=== PATIENT | female | born 1970 | race Caucasian/White ===

== ENCOUNTER → 2022-03-29 10:29 | Outpatient (CLI) | payer OTHER, SELFPAY ==
--- NOTE | ~2022-03-29 | MM_ITS ---
EXAMINATION: MM screening rabia BI w alma HISTORY: Screening TECHNIQUE: Craniocaudal and mediolateral oblique 3-D tomosynthesis images were obtained and synthetic 2-D images were generated. CAD analysis was submitted and interpreted. COMPARISON: Comparison to multiple prior studies sequentially, with oldest reviewed study dated 02/2013. BREAST PARENCHYMAL COMPOSITION: The breasts are almost entirely fatty. FINDINGS: There is no evidence of suspicious mass, calcification, or architectural distortion to sugg est malignancy in either breast. There has been no suspicious interval change. IMPRESSION: 1. No mammographic evidence of malignancy. 2. Recommend routine screening mammography in one year. BI-RADS Category 1: Negative Reviewed, dictated and finalized at location A.
== END ==
PROVIDERS: PCP Internal Medicine; Visit Provider Nurse Practitioner
DX: Z12.31 Encounter for screening mammogram for malignant neoplasm of breast (principal)
CPT/HCPCS: 77063; 77067

== ENCOUNTER 2025-04-18 08:44 | Emergency (ER) | payer OTHER, SELFPAY ==
--- NOTE | ~2025-04-18 | XR_ITS ---
EXAMINATION: XR chest 2V 04/18/2025 09:21 INDICATION: Chest pain TECHNIQUE:Frontal and lateral images of the chest were obtained. COMPARISON: None FINDINGS: The lungs are clear. The cardiomediastinal silhouette is within normal limits. There are no pleural effusions. There is no pneumothorax suspected. IMPRESSION: 1: NO ACUTE CARDIOPULMONARY DISEASE. Reviewed, dictated and finalized at location Q.
[2025-04-18 08:46] VITALS: BP 138/91; PULSE 66; RESP 20; TEMP 36.8; O2SAT 98
[2025-04-18 08:52] VITALS: O2SAT 95
--- NOTE | 2025-04-18 08:52 | ECG_ITS ---
Test Date: 2025-04-18 08:53:45 Measurements Intervals [place] Rate: 64 P: 22 [place]: 145 QRS: 0 QRSD: 90 T: 12 QT: 375 QTc: 389 Interpretive Statements SINUS RHYTHM VOLTAGE CRITERIA FOR LVH BASELINE ARTIFACT- I, II, III, AVR, AVL, AVF BORDERLINE ECG No previous ECG available for comparison Electronically Signed On 04-18-2025 09:05:41 CDT by Solomon Slaughter D.O.
--- NOTE | 2025-04-18 09:05 | ED.CHESTPAIN ---
HPI - Chest Pain General Chief Complaint: Chest Pain Stated Complaint: CP Time Seen by Provider: 04/18/25 08:51 History of Present Illness HPI narrative: 54-year-old female history of hypertension presents to ER complaining of substernal chest pain that radiated through back and into her left arm. Endorse diaphoresis. States symptoms present for approximately 20 minutes and occurred during rest. Patient described the pain as a crushing sensation. Denies alleviating or aggravating factors. States the chest pain caused her shortness of for denies syncopal episodes. Related Data Allergies Allergy/AdvReac Type Severity Reaction Status Date / Time No Known Allergies Allergy Verified 04/18/25 09:30 Review of Systems Review of Systems: All systems reviewed & are unremarkable except as noted in HPI and below Exam Const: General: healthy appearing, no acute distress and alert Nutritional Appearance: obese Orientation/consciousness: patient oriented x3 Limitations: no limitations Chest: Chest palpation & inspection: normal inspection of the chest Resp: Effort & Inspection: normal respiratory effort Cardio: Rate: regular rate Rhythm: regular rhythm Skin: General skin exam: normal color Neuro: General: patient oriented x3, moves all extremities and CN's II-XI intact bilaterally Extrem: General: normal to inspection, no clubbing, cyanosis or edema and no pedal edema Psych: Mental Status: mental status grossly normal Affect: normal affect Attitude: cooperative Course Vital Signs Vital signs: Vital Signs Temperature 36.8 C 04/18/25 08:46 Pulse Rate 66 04/18/25 08:46 Respiratory Rate 20 04/18/25 08:46 Blood Pressure 138/91 H 04/18/25 08:46 Pulse Oximetry 98 04/18/25 08:46 Oxygen Delivery Room Air 04/18/25 08:46 Temperature 36.8 C 04/18/25 08:46 Pulse Rate 66 04/18/25 08:46 Respiratory Rate 20 04/18/25 08:46 Blood Pressure 138/91 H 04/18/25 08:46 Pulse Oximetry 95 04/18/25 08:52 Oxygen Delivery Room Air 04/18/25 08:52 MDM - Chest Pain MDM Narrative Medical decision making narrative: 54-year-old female history of hypertension presented to the ER complaining of substernal chest pain radiated to her left arm and mid back. States the symptoms were present for approximately 40 minutes prior to arrival. EKG shows signs of acute ischemia. Troponin delta troponin both negative. Heart score 2. Chest x-ray shows no acute cardiopulmonary disease. D-dimer is negative. Differential diagnosis includes angina, acute coronary syndrome, PE, pneumonia, costochondritis, pleurisy. Unknown exact cause is the cause chest pain. Consulted with Cardiology, they recommend outpatient follow-up. Will plan discharge patient in stable condition with return ER precautions given. Lab Data 04/18/25 09:48 04/18/25 09:48 Labs: Lab Results 04/18/25 04/18/25 Range/Units 09:48 12:03 WBC 12.8 H (4.5-10.0) K/mm3 RBC 4.61 (4.2-5.4) M/mm3 Hgb 13.6 (12.0-15.0) g/dL Hct 41.2 (37.0-47.0) % MCV 89.4 (80-100) fl MCH 29.5 (26-34) pg MCHC 33.0 (32-36) g/dl RDW 13.1 (11.5-14.5) % Plt Count 352 (150-375) k/mm3 MPV 9.0 (7.4-10.4) fl Immature Gran % (Auto) 0.5 (0-0.5) % Neut % (Auto) 73.5 H (45.5-73.1) % Lymph % (Auto) 18.3 (18.3-44.2) % [place] % (Auto) 5.5 (2.6-8.5) % Eos % (Auto) 1.4 (0-4.4) % Baso % (Auto) 0.8 (0.2-1.2) % Lymph # (Auto) 2.34 (0.9-3.2) K/mm3 [place] # (Auto) 0.7 H (0.1-0.6) K/mm3 Eos # (Auto) 0.2 (0-0.3) K/mm3 Baso # (Auto) 0.1 (0.0-0.1) K/mm3 Abs Immat Gran (auto) 0.06 H (0.00-0.031) K/mm3 Absolute Neuts (auto) 9.4 H (1.3-6.7) K/mm3 Absolute Nucleated RBC 0.000 (0.0-0.012) K/mm3 Nucleated RBC % 0.0 (0.0-0.2) % PT 12.8 (11.1-14.7) Seconds INR 0.9 APTT 24.8 (22.3-36.8) Seconds Sodium 137 (137-145) mmol/L Potassium 4.2 (3.4-5.0) mmol/L Chloride 103 (98-107) mmol/L Carbon Dioxide 27 (22-30) mmol/L Anion Gap 7 (4-12) mmol/L BUN 15 (7-17) mg/dL Creatinine 0.84 (0.7-1.0) mg/dL Estim Creat Clear Calc 81 ml/min Estimated GFR > 60 (59 - ) Glucose 99 (65-110) mg/dL Calcium 9.7 (8.4-10.2) mg/dL Total Bilirubin 0.4 (0.2-1.3) mg/dL AST 69 H (14-36) U/L ALT 39 H (6-35) U/L Alkaline Phosphatase 83 (38-126) U/L Troponin I < 0.012 < 0.012 (0.000-0.034) ng/mL Total Protein 7.3 (6.3-8.2) g/dL Albumin 4.1 (3.5-5.1) g/dL Lipase 243 (23-300) U/L Discharge Plan Discharge Clinical Impression: Chest pain Patient Disposition: Home Condition: Stable Instructions: Antibiotic Form, Chest Pain (ED) Patient Language: Bahamian Follow-up/Referrals: Solomon Slaughter DO [Physician, Cardiology] Flash,Spenser Mendez MD [Primary Care Provider] Time of Disposition: 12:45
[2025-04-18] MEDS: ASPIRIN 81 MG CHEWABLE TABLET 324 MG PO (09:39)
[2025-04-18 09:52] LABS: Hematocrit 41.2 % (37.0-47.0); Hemoglobin 13.6 g/dL (12.0-15.0); Immature Granulocyte Percent A 0.5 % (0-0.5); Lymphocytes Absolute Auto 2.34 K/mm3 (0.9-3.2); Mean Corpuscular HGB Conc 33.0 g/dl (32-36); Mean Corpuscular Hemoglobin 29.5 pg (26-34); Mean Corpuscular Volume 89.4 fl (80-100); Nucleated Red Blood Cells Absolute Auto 0.000 K/mm3 (0.0-0.012); Nucleated Red Blood Cells Perc 0.0 % (0.0-0.2); Platelet Count Result 352 k/mm3 (150-375); Red Blood Count 4.61 M/mm3 (4.2-5.4); White Blood Count 12.8 K/mm3 (4.5-10.0)
--- OUTSIDE RECORDS SUMMARY | 2025-04-18 09:59 | XMS_ITS | Clinical Summary ---
Author Organization [facility] Medical Office Building A Address [address] [place] [address] Care Team Providers Care Aircraft Electrical Systems Specialist Name Role Phone Bebeto Rosenberg MD Primary Care Provider Allergies No known active allergies Medications LORazepam (ATIVAN) 0.5 mg tablet Take 1 tablet (0.5 mg total) by mouth every 8 (eight) hours as needed for anxiety 30 tablet 1 04/24/2023 Active ergocalciferol (VITAMIN D) 50,000 unit capsule TAKE 1 CAPSULE BY MOUTH ONE TIME PER WEEK 12 capsule 3 03/01/2024 Active lisinopril-hydr oCHLOROthiazide (ZESTORETIC) 20-12.5 mg per tablet TAKE 1 TABLET BY MOUTH EVERY DAY 90 tablet 3 04/12/2024 Active semaglutide (Wegovy) 1 mg/0.5 mL auto-injector Inject 0.5 mL (1 mg total) under the skin every 7 days 2 mL 11 08/09/2024 Active Active Problems Problem Noted Date Diagnosed Date Severe obesity 08/09/2024 Annual physical exam 05/23/2017 Visit for screening mammogram 05/23/2017 Atopic rhinitis 01/08/2014 Overview (11/27/2016): ALLERGIC RHINITIS NOS Multiple-type hyperlipidemia 01/08/2014 Overview (11/28/2016): MIXED HYPERLIPIDEMIA Morbid obesity 01/08/2014 Overview (11/28/2016): MORBID OBESITY Adiposity 07/26/2010 Overview (11/28/2016): Obesity Benign hypertension 11/10/2009 Overview (11/28/2016): Benign Hypertension Resolved Problems Problem Noted Date Diagnosed Date Resolved Date Acute streptococcal pharyngitis 01/18/2017 09/02/2019 Overview (01/24/2017): Strep throat Acute maxillary sinusitis 04/24/2016 Overview (11/30/2016): Acute maxillary sinusitis, recurrence not specified Migraine 07/28/2012 05/23/2017 Overview (11/28/2016): Migraine Encounters Date Type Department Care Team Description 03/14/2025 Telephone [facility] Primary Care at [address] [place] [address] Bebeto Rosenberg MD Prior Auth (Wegovy 1 mg) from Last 3 Months Immunizations Immunization Administration Dates Next Due Heplisav-b (Hepatitis B) 05/17/2024,04/17/2024 Influenza, Quadrivalent, Spl it, Preservative Free, Intradermal 06/10/2015 Influenza, Quadrivalent, Spl it, Preservative Free, Intramuscular 06/09/2015 Influenza, Split 07/26/2010 Influenza, Trivalent, Cell Culture-based MDCK, Preservative Free, Antibiotic Free, Intramuscular 04/17/2024 Influenza, Unspecified 04/22/2022(Deferr ed: Patient Refused),10/23/2021(Deferred: Patient Refused),11/17/2020(Deferred: Patient Refused),05/25/2020(Deferred: Patient Refused),09/02/2019(Deferred: Patient Refused),09/01/2018(Deferred: Patient Refused) Moderna SARS-CoV-2 Monovalen t Vaccination (12+ YRS) 11/24/2021,10/27/2021 Medical History Medical History Date Comments 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 Hx Other Medical Headache, migra ine Mixed hyperlipidemia Benign hypertension Family History Medical History Relation Name Comments Diabetes Father Diabetes mellit us; Breast cancer Father's Sister Heart failure Maternal Grandmother Conges tive heart failure; Skin cancer Maternal Grandmother Cancer -skin; Hypertension Mother Hypertension; Breast cancer Paternal Grandmother Diabetes Sister Diabetes mellit us; Relation Name Status Comments Father Father's Sister Maternal Grandmother Mother Paternal Grandmother Sister Social History Tobacco Use Types Packs/Day Years Used Date Smoking Tobacco: Never Smokeless Tobacco: Never Tobacco Cessation:Counseling Given: Yes Alcohol Use Standard Drinks/Week Comments No 0 (1 standard drink = 0.6 oz pur e alcohol) PHQ-2 Answer Date Recorded PHQ-2 Total Score (If total score is 3 or more points, staff should administer the PHQ-9) 0 08/09/2024 Comments No Sex and Gender Information Value Date Recorded Sex Assigned at Not on file Legal Sex Female 5:37 PM CONVENTION PLANNER Gender Identity Female 01/19/2021 11:03 AM CDT Sexual Orientation Not on file Obstetrics History Para Term AB IAB SAB Ectopic Multiple Livin g Live Births 4 3 3 Date Outcome GA Total Labor Labor/2nd/3rd Weight Sex Type Anes PTL Tess A1 A5 Name Clin Term Term Term Last Filed Vital Signs Vital Sign Reading Time Taken Comments Blood Pressure 118/78 08/09/2024 3:33 PM CONVENTION PLANNER Pulse 76 08/09/2024 3:33 PM CONVENTION PLANNER Temperature 36.6 C (97.8 F) 08/09/2024 3:33 PM CONVENTION PLANNER Respiratory Rate 16 08/09/2024 3:33 PM CONVENTION PLANNER Oxygen Saturation 97% 08/09/2024 3:33 PM CONVENTION PLANNER Inhaled Oxygen Concentration - - Weight 102.5 kg (226 lb) 08/09/2024 3:33 PM CONVENTION PLANNER Height 167.6 cm (5' 6) 08/09/2024 3:33 PM CONVENTION PLANNER Body Mass Index 36.48 08/09/2024 3:33 PM CONVENTION PLANNER Plan of Treatment Health Maintenance Due Date Last Done Comments Hepatitis C Screening 1970 Osteoporosis Screening-Bone Density Scan 1970 DTaP/Tdap/Td Vaccine (1 - Tdap) 1981 Zoster Vaccine (1 of 2) 2020 Cervical Cancer Screening 01/30/20232021, 01/30/2022, 12/13/2020, Additional history exists Colon Cancer Screening-DNA Stool 03/24/2024 03/24/2021 Covid-19 Vaccine ( season) 2024 11/24/2021, 10/27/2021 Breast Cancer Screening-Mammogram 09/26/2024 09/26/2023, 03/29/2022, 12/25/2018, Additional history exists Influenza Vaccine (#1) 2025 , 06/10/2015, 06/09/2015, Additional history exists Depression Screening 08/09/2025 08/09/2024, 04/24/2023, 04/22/2022, Additional history exists Regular Well Visit/Exam 18-64 08/09/2025 08/09/2024, 04/24/2023, 04/22/2022, Additional history exists Hepatitis B Screening Completed 05/17/2024, 024 Pneumococcal vaccine <65 Aged Out No longer eligible based on patient's age to complete this topic Procedures Procedure Name Priority Date/Time Associated Diagnosis Comments SCREENING MAMMOGRAM BILATERAL W KANU Schedule Routine, Read Routine (OP Routine) 09/26/2023 3:15 PM CONVENTION PLANNER Visit for screening mammogram HM PAP SMEAR Routine 01/30/2022 STOOL DNA COLOGUARD Routine 03/24/2021 11:01 AM CDT Screening for colorectal cancer from Last 3 Months or Most Recently Relevant to Health Maintenance Results * Screening Mammogram Bilateral W Kanu (09/26/2023 3:15 PM CONVENTION PLANNER) Anatomical Region Laterality Modality Breast Bilateral Mammography 10/13/2023 8:08 AM CONVENTION PLANNER Addenda Addendum by Dany Negrete MD on 10/16/2023 11:23 AM CONVENTION PLANNER Prior mammograms from [facility] ([place], [place]) dictated 03/29/2022 and 12/25/2018 are now available for comparison. The 5 mm mass of concern in the upper inner left breast has not suspiciously changed since December 2018, evidence of a benign etiology based on documented stability of at least 2 years. There is no suspicious finding in either breast on mammogram. Screening mammogram in one year is recommended. The patient will be contacted regarding this addendum. BI-RADS: 2 - Benign. Electronically signed by: Dany Negrete M.D. Impressions 10/13/2023 8:08 AM CONVENTION PLANNER 1. Left breast 5 mm indeterminate mass at approximately the 10 o'clock position, 7-8 cm from the nipple. Left breast diagnostic ultrasound is recommended for further evaluation. The patient will be contacted. 2. No mammographic evidence of malignancy in the right breast. Recommend screening mammography of the right breast in one year. BI-RADS: 0 - Additional imaging evaluation is necessary. Electronically signed by: Dany Negrete M.D. Narrative 10/13/2023 8:08 AM CONVENTION PLANNER EXAMINATION: SCREENING MAMMOGRAM BILATERAL W KANU ORDERING HEALTHCARE PROVIDER: BEBETO ROSENBERG HISTORY: Routine screening mammography. COMPARISON: New baseline mammogram. No prior imaging available for comparison. TECHNIQUE: CC and MLO views of the bilateral breasts were obtained with digital technique using breast tomosynthesis with C view. Computer aided detection was utilized. FINDINGS: DENSITY: There are scattered fibroglandular elements in the bilateral breasts. BREASTS: There is a 5 mm oval circumscribed mass in the upper inner left breast, middle depth. There are no associated suspicious microcalcifications or architectural distortion. There is no other suspicious findings in either breast on mammogram. Bebeto Rosenberg MD IMG MAMMO PROCEDURES Ed ited Result - Final * HM PAP SMEAR (01/30/2022) us Generic External Data Provider HEALTH MAINTENANC E Final Result * Stool DNA - Cologuard (03/24/2021 11:01 AM CDT) Stool DNA - Cologuard Negative Negative [employer] (CLIA #:[id number]) Comment: NEGATIVE TEST RESULT. A negative Cologuard result indicates a low likelihood that a colorectal cancer (CRC) or advanced adenoma (adenomatous polyps with more advanced pre-malignant features) is present. The chance that a person with a negative Cologuard test has a colorectal cancer is less than 1 in 1500 (negative predictive value >99.9%) or has an advanced adenoma is less than 5.3% (negative predictive value 94.7%). These data are based on a prospective cross-sectional study of 10,000 individuals at average risk for colorectal cancer who were screened with both Cologuard and colonoscopy. (Kathy Campbell et al, N Engl J Med 2014;370(14):3568-6166) The normal value (reference range) for this assay is negative. COLOGUARD RE-SCREENING RECOMMENDATION: Periodic colorectal cancer screening is an important part of preventive healthcare for asymptomatic individuals at average risk for colorectal cancer. Following a negative Cologuard result, the [employer] Society and U.S. Multi-Society Task Force screening guidelines recommend a Cologuard re-screening interval of 3 years. References: [employer] Society Guideline for Colorectal Cancer Screening: https://www.cancer.org/cancer/vrcxv-azzmpw-valwbz/wpqcpxunm-simzxrhwj-hqgybgh/ac s-rec ommendations.html.; Gen DK, Akanksha CORTES, Abelardo AgueroK, Colorectal Cancer Screening: Recommendations for Physicians and Patients from the U.S. Multi-Society Task Force on Colorectal Cancer Screening , Am J Gastroenterology 2017; 112:6826-3350. TEST DESCRIPTION: Composite algorithmic analysis of stool DNA-biomarkers with hemoglobin immunoassay. Quantitative values of individual biomarkers are not reportable and are not associated with individual biomarker result reference ranges. Cologuard is intended for colorectal cancer screening of adults of either sex, 45 years or older, who are at average-risk for colorectal cancer (CRC). Cologuard has been approved for use by the U.S. FDA. The performance of Cologuard was established in a cross sectional study of average-risk adults aged 50-84. Cologuard performance in patients ages 45 to 49 years was estimated by sub-group analysis of near-age groups. Colonoscopies performed for a positive result may find as the most clinically significant lesion: colorectal cancer [4.0%], advanced adenoma (including sessile serrated polyps greater than or equal to 1cm diameter) [20%] or non- advanced adenoma [31%]; or no colorectal neoplasia [45%]. These estimates are derived from a prospective cross-sectional screening study of 10,000 individuals at average risk for colorectal cancer who were screened with both Cologuard and colonoscopy. (Kathy Campbell et al, N Engl J Med 2014;370(14):2561-0383.) Cologuard may produce a false negative or false positive result (no colorectal cancer or precancerous polyp present at colonoscopy follow up). A negative Cologuard test result does not guarantee the absence of CRC or advanced adenoma (pre-cancer). The current Cologuard screening interval is every 3 years. ([employer] Society and U.S. Multi-Society Task Force). Cologuard performance data in a 10,000 patient pivotal study using colonoscopy as the reference method can be accessed at the following location: www.[employer]/results. Additional description of the Cologuard test process, warnings and precautions can be found at www.cologuard.[employer]rippifi. Stool 03/24/2021 11:0 1 AM CDT 07/24/2021 1:02 PM CONVENTION PLANNER Bebeto Rosenberg MD LAB BODY FLUIDS AND STO OLS ORDERABLES Final Result [facility] (CLIA #:[id number]) [place] [address] [place] [address] from Last 3 Months or Most Recently Relevant to Health Maintenance Insurance [facility] [place] [facility] Care Teams Aircraft Electrical Systems Specialist Relationship Specialty Start Date End Date Bebeto Rosenberg MD PCP - General 12/08/14
[2025-04-18 10:03] LABS: INR 0.9; Prothrombin Time 12.8 Seconds (11.1-14.7)
[2025-04-18 10:04] LABS: Partial Thromboplastin Time 24.8 Seconds (22.3-36.8)
[2025-04-18 10:09] LABS: Alanine Aminotransferase 39 U/L (6-35); Albumin Level 4.1 g/dL (3.5-5.1); Alkaline Phosphatase 83 U/L (38-126); Anion Gap 7 mmol/L (4-12); Aspartate Amino Transferase 69 U/L (14-36); Bilirubin,Total 0.4 mg/dL (0.2-1.3); Blood Urea Nitrogen 15 mg/dL (7-17); Calcium 9.7 mg/dL (8.4-10.2); Carbon Dioxide 27 mmol/L (22-30); Chloride 103 mmol/L (98-107); Estimated CRCL calculation 81 ml/min; Estimated Glomerular Filt Rate > 60; Glucose 99 mg/dL (65-110); Lipase 243 U/L (23-300); Potassium 4.2 mmol/L (3.4-5.0); Sodium 137 mmol/L (137-145); Total Protein 7.3 g/dL (6.3-8.2)
[2025-04-18 10:15] LABS: Troponin I < 0.012 ng/mL (0.000-0.034)
--- NOTE | 2025-04-18 11:53 | ECG_ITS ---
Test Date: 2025-04-18 11:59:40 Measurements Intervals [place] Rate: 59 P: 20 [place]: 159 QRS: -4 QRSD: 94 T: 12 QT: 395 QTc: 393 Interpretive Statements SINUS BRADYCARDIA DELAYED PRECORDIAL R/S TRANSITION VOLTAGE CRITERIA FOR LVH BASELINE ARTIFACT- I, III, AVR, AVL ,AVF BORDERLINE ECG Compared to ECG 04/18/2025 08:53:45 NO SIGNIFICANT CHANGE Electronically Signed On 04-18-2025 12:02:33 CDT by Solomon Slaughter D.O.
[2025-04-18 12:36] LABS: Troponin I < 0.012 ng/mL (0.000-0.034)
== END 2025-04-18 13:18 | disposition home or self-care (01) ==
PROVIDERS: Emergency Provider Nurse Practitioner Family; PCP Internal Medicine
DX: R07.2 Precordial pain (principal); R00.1 Bradycardia, unspecified
CPT/HCPCS: 36415; 71046; 80053; 83690; 84484; 85025; 85610; 85730; 93005; 99284; A9270